=== PATIENT | female | born 1945 ===

== ENCOUNTER → 2016-10-14 | Outpatient (CLI) | payer OTHER ==
[2016-10-14 18:20] LABS: ALT/SGPT 14 U/L (12-78); AST/SGOT 8 U/L (15-37); BLOOD UREA NITROGEN 20 mg/dl (7-18); BUN/CREATININE RATIO 27.9 (10-20); CALCIUM 9.1 mg/dl (8.5-10.1); CARBON DIOXIDE 39 mmol/L (21-32); CHLORIDE 101 mmol/L (98-107); CHOLESTEROL 90 mg/dl (0-200); CREATININE 0.72 mg/dl (0.60-1.20); GLUCOSE 154 mg/dl (70-99); MAGNESIUM 2.4 mg/dl (1.8-2.4); POTASSIUM 3.7 mmol/L (3.5-5.1); SODIUM 143 mmol/L (136-145); TRIGLYCERIDES 102 mg/dl (0-150); VERY LOW DENSITY LIPOPROT CALC 20 mg/dl
[2016-10-14 18:25] LABS: ALB/GLOB RATIO 0.9 (0.9-2); ALKALINE PHOSPHATASE 81 U/L (45-117); HDL CHOLESTEROL 30 mg/dl; LDL CHOLESTEROL CALCULATED 40 mg/dl
[2016-10-14 18:57] LABS: HEMATOCRIT 29.1 % (37-47); MEAN CELL VOLUME 73.5 fL (80-100); MEAN CORPUSCULAR HEMOGLOBIN 19.2 pg (25-34); MEAN CORPUSCULAR HGB CONC 26.1 g/dl (32-36); MEAN PLATELET VOLUME 9.7 fL (7.4-10.4); PLATELET COUNT 214 K/uL (130-400); RED BLOOD COUNT 3.96 M/uL (4.2-5.4)
[2016-10-14 19:00] LABS: BASO % 0.3 %; BASO ABS # 0.02 K/uL (0-0.2); COMPLETE YES; EOS % 3.9 %; IG% 0.4 %; LYMPH % 9.4 %; LYMPH ABS # 0.68 K/uL (1.2-3.4); MONO % 7.6 %; NEUT % 78.4 %; OVALOCYTES 1+; POLYCHROMASIA 1+
[2016-10-15 06:20] LABS: ESTIMATED AVERAGE GLUCOSE 163 mg/dl; HA1C FLAG Normal (Normal)
== END | disposition home or self-care (01) ==
LOC: C.LABMFLN 14:01
PROVIDERS: ATTEND Family Medicine
DX: I10 Essential (primary) hypertension (principal); I50.9 Heart failure, unspecified; R78.5 Finding of other psychotropic drug in blood; E78.5 Hyperlipidemia, unspecified; E11.9 Type 2 diabetes mellitus without complications